=== PATIENT | female | born 1980 | race Two or more races ===

== ENCOUNTER 2025-05-07 11:13 | Emergency (ER) | payer BC, SELFPAY ==
[2025-05-07 11:14] VITALS: BMI 26.0
--- NOTE | 2025-05-07 11:16 | EDNOTE_ITS ---
ED Eye Problem RME/HPI General Chief complaint: Eye Problems Stated complaint: SOMETHING IN R. EYE Time Seen by Provider: 05/07/25 11:15 Arrival date/time: 05/07/25 11:13 Limitations: no limitations RME / HPI RME / HPI Narrative: Here with a 2 day history of right eye irritation. Normally wears contacts, presents with glasses. Denies any trauma. Has no bleeding or discharge. She has no other acute complaints. Related Data Previous Rx's ?Medication ?Instructions ?Recorded polymyxin B sulfate 10,000 1 drp ophthalmic (eye) QID 5 days 05/07/25 unit-trimethoprim 1 mg/mL eye drops #10 mL Allergies Allergy/AdvReac Type Severity Reaction Status Date / Time hydrocodone AdvReac Mild UPSET Verified 05/07/25 11:14 STOMACH Review of Systems Review of Systems Systems Reviewed: All systems reviewed, normal except as documented ED Exam General Limitations: Present no limitations General appearance: Present alert and in no apparent distress Head Head exam: Present atraumatic Eye Eye exam: Present PERRL, EOMI, conjunctival injection and other (No foreign bodies were appreciated. No uptake of fluorescein); Absent periorbital swelling ENT ENT exam: Present normal exam, normal oropharynx and mucous membranes moist Neck Neck exam: Present normal inspection, full ROM and trachea midline Chest Chest inspection: Present normal inspection and symmetric chest wall rise Respiratory Respiratory exam: Present normal lung sounds bilaterally Cardiovascular Cardiovascular exam: Present regular rate, normal rhythm and normal heart sounds Abdominal Exam Abdominal exam: Present soft and normal bowel sounds Extremities Exam Extremities exam: Present normal inspection and full ROM Back Exam Back exam: Present normal inspection and full ROM Neurological Exam Neurological exam: Present alert, oriented X3 and CN II-XII intact Psychiatric Psychiatric exam: Present normal affect and normal mood Skin Skin exam: Present warm, dry, intact and normal color Course Quality Measures none Orders Category Date Time Status Visual Acuity NOW Care 05/07/25 11:15 Active Fluorescein Sodium [Bio-Riri] Med 05/07/25 11:15 Discontinued 1 mg RIGHT EYE X1 ONE Proparacaine Op Tesha 0.5% [Alcaine Op Tesha 0.5%] Med 05/07/25 11:15 Discontinued See Dose Instructions RIGHT EYE X1 ONE Vital Signs Vital signs: Vital Signs Temperature 98.9 F 05/07/25 11:22 Pulse Rate 83 05/07/25 11:22 Respiratory Rate 19 05/07/25 11:22 Blood Pressure 114/73 05/07/25 11:22 Pulse Oximetry (%) 98 05/07/25 11:22 Oxygen Delivery Method Room Air 05/07/25 11:22 Eye MDM Narrative MDM Narrative:: Here with a 2 day history of right eye irritation. Normally wears contacts, presents with glasses. Denies any trauma. Has no bleeding or discharge. She has no other acute complaints. On exam, patient is nontoxic-appearing in no visible signs of distress. She has mild erythema at the right eye. No foreign bodies or uptake of fluorescein were appreciated. She is placed on antibiotic drops as a precaution. She is asked to not use her contact lenses for minimum 1 week. Return anytime for any worsening changes. Patient data External records reviewed:: None Clinical information provided by:: patient Social determinants that could affect healthcare access:: none Patient has the following chronic illnesses:: n/a How is presenting disease/condition affected by chronic disease/condition?: no chronic disease Evaluation data The following diagnostics were reviewed and interpreted by me:: other (specify) (n/a) Lab and/or radiology exams considered but not ordered:: n/a Interpretation Summary: n/a Medications / Prescriptions Medications or Prescriptions considered but not ordered:: n/a Medication administrations:: Medication Administration History Discontinued Medications Fluorescein Sodium (Fluorescein Sod 1 Mg Strp) 1 mg RIGHT EYE X1 ONE Stop: 05/07/25 11:16 Last Admin: 05/07/25 11:35 Dose: 1 mg Documented By: Proparacaine HCl (Proparacaine Op Tesha 0.5% 15 Ml Btl) 0 drop RIGHT EYE X1 ONE Stop: 05/07/25 11:16 Last Admin: 05/07/25 11:35 Dose: 2 drop Documented By: See above Consultations Consultation(s) initiated? (list below): No Diagnosis Eye Problem Differential Diagnosis: other Most likely diagnosis given after review of the tests above:: n/a Admission Indicated Admission indicated?: not indicated Admission Request Was there a request for admission?: No Disposition Plan Disposition Plan: Discharge Discharge Attestation Discharge Attestation: The patient and all family members were given an opportunity to ask questions and understood the discharge instructions. Discharge instructions specifically effects, indications for sooner follow up or return to the emergency department, and the expected course of current diagnosis. Patient condition: Stable Discharge Plan Plan Patient Disposition: HOME (Self Care) Patient condition on transfer: Stable Prescriptions/Referrals Prescriptions/Med Rec: New polymyxin B sulf-trimethoprim 10,000 unit- 1 mg/mL drops 1 drp ophthalmic (eye) QID 5 Days Qty: 10 0RF Referrals: Shailesh (PCP),MD Aron [Primary Care Provider] - In 1 week Problem List Clinical Impression: Corneal abrasion Patient/Caregiver Discharge Instructions Education Materials: ED Corneal Abrasion Additional Instructions: - Do not use contacts for minimum 1 week. - Use the provided antibiotic drops as prescribed. - Please return at anytime for any worsening or emergent changes. Print Language: Luxembourgish Stand Alone Forms: Mary Award Info., Patient Portal Info Letter
[2025-05-07 11:22] VITALS: BP 114/73; PULSE 83; RESP 19; TEMP 37.2; O2SAT 98
[2025-05-07] MEDS: PROPARACAINE OP SOL 0.5% 15 ML BTL RIGHT EYE (11:35)
[2025-05-07] MEDS: FLUORESCEIN SOD 1 MG STRP RIGHT EYE (11:35)
== END 2025-05-07 12:45 | disposition home or self-care (01) ==
PROVIDERS: Emergency Provider Physician Assistant Medical; PCP Family Medicine
DX: S05.01XA Injury of conjunctiva and corneal abrasion without foreign body, right eye, initial encounter (principal); X58.XXXA Exposure to other specified factors, initial encounter
CPT/HCPCS: 99283